=== PATIENT | male | born 1970 | race Caucasian/White ===

== ENCOUNTER → 2020-10-25 | Outpatient (CLI) | payer OTHER | LOC: CAT 14:03 | PROVIDERS: ATTEND Family Medicine | DX: G44.52 New daily persistent headache (NDPH) (principal) ==

== ENCOUNTER → 2020-11-09 | Outpatient (CLI) | payer OTHER | LOC: CAT 08:19 | PROVIDERS: ATTEND Family Medicine | DX: Z12.31 Encounter for screening mammogram for malignant neoplasm of breast (principal) ==